=== PATIENT | male | born 1945 | race Caucasian/White ===

== ENCOUNTER 2021-02-25 14:07 | Emergency (ER) | payer MEDICARE ==
[~2021-02-25] VITALS: Ht 175.3 cm; Wt 90.0 kg
[2021-02-25 14:54] LABS: BASOPHILS % 0.6 % (0.0-2.0); HEMATOCRIT. 41.3 % (42.0-52.0); HEMOGLOBIN. 14.3 g/dL (14.0-18.0); LYMPHOCYTES % 24.3 % (20.0-50.0); MEAN CORPUSCULAR HEMOGLOBIN 31.8 pg (28.0-32.0); MEAN CORPUSCULAR VOLUME 91.5 fL (80.0-94.0); MEAN PLATELET VOLUME 8.2 fl (7.4-10.4); MONOCYTES % 5.6 % (2.0-8.0); NEUTROPHILS % 67.5 % (40.0-76.0); PLATELET 240 x1000/uL (130-400); RED BLOOD CELL COUNT 4.51 mill/uL (4.7-6.1); RED CELL DISTRIBUTION WIDTH 13.7 % (11.6-14.6)
[2021-02-25 14:56] LABS: CHLORIDE 110 mEq/L (98-107)
[2021-02-25] MEDS: SODIUM CHLORIDE 0.9% 500 ML IV ONE (15:26)
[2021-02-25 16:15] VITALS: BP 124/92
== END 2021-02-25 16:44 | disposition home or self-care (01) ==
LOC: ER 15:11 → CANBEDREQ 16:24 → ER 16:44
DX: R55 Syncope and collapse (principal); I25.2 Old myocardial infarction; I10 Essential (primary) hypertension; Z98.890 Other specified postprocedural states
CPT/HCPCS: 36415; 71045; 80053; 84484; 85025; 99284; J7040